=== PATIENT | female | born 1995 | race Caucasian/White ===

== ENCOUNTER 2016-09-08 17:11 | Emergency (ER) | payer BC, OTHER ==
[~2016-09-08] VITALS: Ht 165.1 cm; Wt 79.9 kg
[~2016-09-08 17:11] MED LIST: FERR325T51 PO; SERT50TA PO
[2016-09-08 17:15] VITALS: TEMP 37; Ht 165.1 cm; Wt 79.9 kg
[2016-09-08] MEDS ORDERED: PRED10TA PO (17:36)
[2016-09-08] MEDS ORDERED: AMX500 PO (17:36)
[2016-09-08 18:19] LABS: URINE APPEARANCE CLEAR (CLEAR); URINE BILIRUBIN NEG (NEG); URINE COLOR YELLOW; URINE EPITHELIAL CELL AUTO 20-30 /lpf (0-5); URINE NITRITE NEG (NEG); URINE SPECIFIC GRAVITY 1.027 (1.000-1.030); UROBILINOGEN NEG (NEG); ZZUR CULT IF INDIC CLEAN CATCH NO
[2016-09-08 18:22] LABS: MANUAL MICROSCOPIC REQUIRED? NO; REVIEW REQ? YES; SULFASALICYLIC ACID NEG (NEG)
--- NOTE | 2016-09-08 19:09 | DIAGNOSTIC IMAGING REPORT ---
PELVIC ULTRASOUND CLINICAL HISTORY: Lower abdominal pain. Vaginal discharge. COMPARISON STUDY: Pelvic ultrasound October 06, 2014 and MRI of the pelvis December 02, 2014. TECHNIQUE: Transabdominal and transvaginal sonography of the pelvis was performed. FINDINGS: The uterus measures 10.1 x 4.6 x 4.4 cm. The endometrium measures 1 cm in thickness. A small amount of fluid is noted within the endometrial canal. The right ovary measures 4.2 x 1.9 x 2.4 cm and the left measures 4.5 x 1.9 x 2.6 cm. There was color flow within each ovary. A small amount of fluid was noted within the pelvis. IMPRESSION: 1. Unremarkable sonographic appearance of the ovaries. 2. Endometrial thickness of 1 cm. Small amount of fluid within the endometrial and cervical canal. 3. Small amount of fluid within the pelvis. Electronically signed by: Benjamin Zamorano M.D. 09/08/2016 7:08 PM Dictated Date/Time: 09/08/2016 7:05 PM
[2016-09-08] MEDS ORDERED: ACETAMINOPHEN 500 MG TAB PO STA (19:38)
[2016-09-08] MEDS ORDERED: METRONIDAZOLE 250 MG TAB PO STA (20:16)
--- NOTE | 2016-09-08 20:18 | EMERGENCY ROOM VISIT NOTE ---
History Report prepared by Sue: Terra Roque Under the Supervision of: Dr. Lila Boone D.O. First contact with patient: 17:20 Chief Complaint: PELVIC PAIN Stated Complaint: ABD PAIN, DIARRHEA, FEVER, CHILLS History of Present Illness The patient is a 21 year old female who presents to the Emergency Room with complaints of an episode of pelvic pain starting six days ago. The patient states that she has been having a severe watery vaginal discharge that has no smell. She states that it is so bad that she has to wear a maxi pad or she leaks onto her sheets. She states that she has a crampy period like pain with it , but it feels worse. The patient reports that she was treated for a UTI and a yeast infection two weeks ago. She reports that she was tested two weeks ago for Gonorrhea and Chlamydia that came back negative, but has had two different new sexual partners since then. The patient states that a week ago she took Plan B and she notes that she bled for a day. The patient states that she is on Prednisone and Amoxicillin for a double ear infection and sinus infection that she started yesterday. The patient complains of fever, chills, and being bloated. She denies urinary symptoms, change in bowel movements, diarrhea, new soaps, new detergents, new condoms, and new lubricants. 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 Source of History: patient Onset: six days ago Position: pelvis Symptom Intensity: severe Quality: other (crampy period like) Timing: other (episode) Associated Symptoms: + fevers, + chills, No diarrhea, No urinary symptoms Note: The patient complains of bloating. The patient denies a change in bowel movements, new soaps, new dtergents, new condoms, and new lubricants. Review of Systems Pt denies headache, change in vision, fevers, chest pain, shortness of breath, nausea, vomiting, diarrhea, pain with urination, and melena. Past Medical & Surgical Medical Problems: (1) First trimester (2) Non-reactive NST (non-stress test) (3) Placenta accreta (4) Threatened miscarriage (5) Uterine contractions Family History Cancer Diabetes mellitus Kidney disease Kidney stones Social History Smoking Status: Never Smoker Alcohol Use: none Marital Status: single Housing Status: lives alone Occupation Status: [employer] student Current/Historical Medications Scheduled Amoxicillin (Amoxicillin), 500 MG PO BID Metronidazole (Flagyl), 500 MG PO BID Prednisone Tab (Prednisone), 10 MG PO BID Sertraline (Zoloft), 75 MG PO DAILY Allergies Coded Allergies: No Known Allergies (Unverified , 09/08/16) Physical Exam Vital Signs Date Time Temp Pulse Resp B/P (MAP) Pulse Ox O2 Delivery O2 Flow Rate FiO2 09/08/16 20:34 103 18 113/67 96 09/08/16 19:14 99 16 114/64 99 Room Air 09/08/16 17:15 37.0 101 20 115/77 100 Room Air Physical Exam GENERAL: alert, well appearing, well nourished, no distress, non-toxic EYE EXAM: normal conjunctiva, PERRL and EOM's grossly intact OROPHARYNX: no exudate, no erythema, lips, buccal mucosa, and tongue normal and mucous membranes are moist NECK: supple, no nuchal rigidity, no adenopathy, non-tender LUNGS: Clear to auscultation. Normal chest wall mechanics HEART: no murmurs, S1 normal and S2 normal ABDOMEN: abdomen soft, normo-active bowel sounds, no masses, no rebound or guarding, mild suprapubic discomfort. BACK: Back is symmetrical on inspection and there is no deformity, no midline tenderness, no CVA tenderness. SKIN: no rashes and no bruising UPPER EXTREMITIES: upper extremities are grossly normal. LOWER EXTREMITIES: No pitting edema. NEURO EXAM: Normal sensorium, cranial nerves II-XII [grossly] intact, normal speech, no [gross] weakness of arms, no [gross] weakness of legs. [No drift. Finger to nose intact. Gross sensation intact.] Medical Decision & Procedures ER Provider Diagnostic Interpretation: Radiology results have been interpreted by the radiologist and reviewed by me. PELVIC ULTRASOUND CLINICAL HISTORY: Lower abdominal pain. Vaginal discharge. COMPARISON STUDY: Pelvic ultrasound October 06, 2014 and MRI of the pelvis December 02, 2014. TECHNIQUE: Transabdominal and transvaginal sonography of the pelvis was performed. FINDINGS: The uterus measures 10.1 x 4.6 x 4.4 cm. The endometrium measures 1 cm in thickness. A small amount of fluid is noted within the endometrial canal. The right ovary measures 4.2 x 1.9 x 2.4 cm and the left measures 4.5 x 1.9 x 2.6 cm. There was color flow within each ovary. A small amount of fluid was noted within the pelvis. IMPRESSION: 1. Unremarkable sonographic appearance of the ovaries. 2. Endometrial thickness of 1 cm. Small amount of fluid within the endometrial and cervical canal. 3. Small amount of fluid within the pelvis. Electronically signed by: Benjamin Zamorano M.D. 09/08/2016 7:08 PM Dictated Date/Time: 09/08/2016 7:05 PM Laboratory Results Test 09/08/16 18:00 09/08/16 19:35 Urine Color YELLOW Urine Appearance CLEAR (CLEAR) Urine pH 8.0 (4.5-7.5) Urine Specific [place] 1.027 (1.000-1.030) Urine Protein NEG (NEG) Urine Glucose (UA) NEG (NEG) Urine Ketones TRACE (NEG) Urine Occult Blood NEG (NEG) Urine Nitrite NEG (NEG) Urine Bilirubin NEG (NEG) Urine Urobilinogen NEG (NEG) Urine Leukocyte Esterase TRACE (NEG) Urine WBC (Auto) 1-5 /hpf (0-5) Urine RBC (Auto) 0-4 /hpf (0-4) Urine Hyaline Casts (Auto) 1-5 /lpf (0-5) Urine Epithelial Cells (Auto) 20-30 /lpf (0-5) Urine Bacteria (Auto) NEG (NEG) Urine Test NEG (NEG) Laboratory results per my review. Medications Administered Medications (Trade) Dose Ordered Sig/Lili Route Start Time Stop Time Status Last Admin Dose Admin Acetaminophen (Tylenol Tab) 1,000 mg NOW STAT PO 09/08/16 19:38 09/08/16 19:39 DC 09/08/16 19:44 1,000 MG Metronidazole (Flagyl Tab) 500 mg NOW STAT PO 09/08/16 20:16 09/08/16 20:17 DC 09/08/16 20:30 500 MG Procedure PELVIC EXAM: Normal external genitalia. No blood in vaginal vault. Moderate amount of clear vaginal discharge. No evidence of cervicitis. No CMT or adnexal tenderness. ED Course 1738: The patient was evaluated in room A3. A complete history and physical exam was performed. 1938: Ordered Tylenol Tab 1000 mg PO. 2016: Ordered Flagyl Tab 500 mg PO. 2017: Upon reevaluation, the patient is feeling better. I discussed the findings and the treatment plan with the patient. She verbalizes agreement and understanding. The patient was discharged home. Medical Decision Differential diagnoses include STD, PID, EV, TOA, hormonal abnormality, allergic reaction, vaginitis. Pt well appearing here despite complaints. Abd soft, no f/c. UA negative. GC/ Chlamydia sent, yeast pending but clinically not consistent with yeast infection. Given discharge, possible BV. Started on flagyl. No evidence of PID, TOA. Doubt additional GI pathology. Doubt stone/pyelo. Discussed f/u with gore cutter, discussed sx to watch/return for, she verbalized understanding and was agreeable with plan. Medication Reconcilliation Current Medication List: was personally reviewed by me Blood Pressure Screening Patient's blood pressure: Normal blood pressure Impression Primary Impression: Vaginal discharge Additional Impression: Bacterial vaginosis Scribe Attestation The scribe's documentation has been prepared under my direction and personally reviewed by me in its entirety. I confirm that the note above accurately reflects all work, treatment, procedures, and medical decision making performed by me. Departure Information Dispostion Home / Self-Care Prescriptions Metronidazole (FLAGYL) 500 Mg Tab 500 MG PO BID, #14 TAB Prov: MelyLila Marcus, DO 09/08/16 Referrals No Doctor, Assigned (PCP) Forms HOME CARE DOCUMENTATION FORM, IMPORTANT VISIT INFORMATION, WORK / SCHOOL INSTRUCTIONS Patient Instructions My [facility] Additional Instructions Please follow up with NURSE regarding her discharge. Please take the antibiotics as prescribed. Please avoid sexual intercourse until you are seen and cleared by NURSE. Please drink plenty of water. Do not douche. If you develop any worsening discharge, develop pain, bleeding, fevers or chills, back pain, noticed a change in your urine or bowel movements, or you have any other new concerns, please return the emergency room. Problem Qualifiers
[2016-09-08] MEDS ORDERED: METR500T PO (20:19)
[2016-09-08 20:34] VITALS: BP 113/67; PULSE 103; O2SAT 96
[2016-09-12 03:03] LABS: CHLAMYDIA TRACH RNA*** NOT DETECTED (NOT DETECTED); GC (NEIS GONORRHOEAE)RNA** NOT DETECTED (NOT DETECTED)
== END 2016-09-08 20:36 | disposition home or self-care (01) ==
LOC: C.EDB 17:13 → C.EDA 20:36
DX: N76.0 Acute vaginitis (principal); Z87.59 Personal history of other complications of pregnancy, childbirth and the puerperium; Z83.3 Family history of diabetes mellitus; Z84.1 Family history of disorders of kidney and ureter

== ENCOUNTER 2016-09-10 10:28 | Emergency (ER) | payer BC, OTHER ==
[~2016-09-10] VITALS: Ht 165.1 cm; Wt 79.9 kg
[~2016-09-10 10:28] MED LIST changes: +AMX500 PO; -FERR325T51 PO; +METR500T PO; +PRED10TA PO
[2016-09-10 10:31] VITALS: Ht 165.1 cm; Wt 79.9 kg
[2016-09-10] MEDS ORDERED: CEFTRIAXONE SOD INJ 1 GM ADDVIAL IV STA (11:16)
[2016-09-10] MEDS ORDERED: HYDROmorphone INJ 1 MG/ML SYR IV STA (11:16)
[2016-09-10] MEDS ORDERED: KETOROLAC TROMETHAMINE 30 MG/ML VIAL IV STA (11:16)
[2016-09-10] MEDS ORDERED: SODIUM CHLORIDE 0.9% 1000ML 1,000 ML IV STA (11:16)
[2016-09-10] MEDS ORDERED: METOCLOPRAMIDE HCL INJ 5 MG/ML 2 ML VIAL IV STA (11:16)
[2016-09-10] MEDS ORDERED: AZITHROMYCIN 250 MG TAB PO ONE (11:30)
[2016-09-10] MEDS ORDERED: OPTIRAY 320 IV PRN (11:30)
[2016-09-10] MEDS ORDERED: DOXYCYCLINE HYCLATE 100 MG CAP PO ONE (11:30)
[2016-09-10 11:33] LABS: HEMATOCRIT 40.7 % (37-47); MEAN CELL VOLUME 84.6 fL (80-100); MEAN CORPUSCULAR HEMOGLOBIN 28.3 pg (25-34); MEAN CORPUSCULAR HGB CONC 33.4 g/dl (32-36); MEAN PLATELET VOLUME 8.7 fL (7.4-10.4); PLATELET COUNT 184 K/uL (130-400); RED BLOOD COUNT 4.81 M/uL (4.2-5.4); WHITE BLOOD COUNT 6.23 K/uL (4.8-10.8)
[2016-09-10 11:50] LABS: ALT/SGPT 33 U/L (12-78); AST/SGOT 22 U/L (15-37); BLOOD UREA NITROGEN 9 mg/dl (7-18); BUN/CREATININE RATIO 10.4 (10-20); CALCIUM 9.3 mg/dl (8.5-10.1); CARBON DIOXIDE 30 mmol/L (21-32); CHLORIDE 102 mmol/L (98-107); CREATININE 0.87 mg/dl (0.60-1.20); GLUCOSE 76 mg/dl (70-99); SODIUM 137 mmol/L (136-145)
[2016-09-10 11:51] LABS: URINE APPEARANCE CLEAR (CLEAR); URINE BILIRUBIN NEG (NEG); URINE COLOR DK YELLOW; URINE EPITHELIAL CELL AUTO >30 /lpf (0-5); URINE NITRITE NEG (NEG); URINE PH 6.5 (4.5-7.5); URINE SPECIFIC GRAVITY 1.026 (1.000-1.030); UROBILINOGEN NEG (NEG)
[2016-09-10 11:53] LABS: ALKALINE PHOSPHATASE 51 U/L (45-117)
[2016-09-10 11:53] LABS: MANUAL MICROSCOPIC REQUIRED? NO; REVIEW REQ? NO
--- NOTE | 2016-09-10 11:53 | EMERGENCY ROOM VISIT NOTE ---
History Report prepared by Sue: Joanie Carlos Under the Supervision of: Dr. Rajiv Callaway M.D. First contact with patient: 11:07 Chief Complaint: PELVIC PAIN Stated Complaint: PELVIC PAIN,FEVER,DISCHARGE History of Present Illness The patient is a 21 year old female who presents to the Emergency Room with complaints of worsening pelvic pain for the past week. She has had abnormal vaginal discharge. The patient was evaluated in the ED two days ago for these symptoms and diagnosed with bacterial vaginosis. She was discharged on Flagyl and with instructions to follow-up with her ob-violin restorer. The patient states that she was unable to be seen by her ob-violin restorer until November, and she is still experiencing the same symptoms. Now she is also having diarrhea and abdominal bloating. She has been taking Tylenol for pain. The patient rates her current pain as a 2/10 in severity. She is currently taking Amoxicillin and prednisone for a sinus infection and bilateral ear infection. Source of History: patient Onset: 1 week ago Position: pelvis Symptom Intensity: 2/10 Quality: other (bloating) Timing: worsening Associated Symptoms: + diarrhea Note: Pt has abnormal vaginal discharge. Review of Systems See HPI for pertinent positives & negatives. A total of 10 systems reviewed and were otherwise negative. Past Medical & Surgical Medical Problems: (1) First trimester (2) Non-reactive NST (non-stress test) (3) Placenta accreta (4) Threatened miscarriage (5) Uterine contractions Family History Cancer Diabetes mellitus Kidney disease Kidney stones Social History Smoking Status: Never Smoker Alcohol Use: none Marital Status: single Housing Status: lives alone Occupation Status: [employer] student Current/Historical Medications Scheduled Amoxicillin (Amoxicillin), 500 MG PO BID Doxycycline Monohydrate (Monodox), 100 MG PO BID Metronidazole (Flagyl), 500 MG PO BID Prednisone Tab (Prednisone), 10 MG PO BID Sertraline (Zoloft), 75 MG PO DAILY Allergies Coded Allergies: No Known Allergies (Unverified , 09/08/16) Physical Exam Vital Signs Date Time Temp Pulse Resp B/P (MAP) Pulse Ox O2 Delivery O2 Flow Rate FiO2 09/10/16 14:23 37.5 100 18 109/71 96 09/10/16 12:13 88 18 91/46 96 Room Air 09/10/16 12:05 90 09/10/16 10:31 37.6 102 18 114/77 97 Room Air Physical Exam GENERAL: Patient is a healthy-appearing well-nourished 21 year old female HEAD: Normocephalic atraumatic EYES: Ocular movements intact pupils equal and react to light OROPHARYNX mucous membranes are moist no exudates present no erythema or edema present NECK: Supple no nuchal rigidity CHEST: Good equal expansion LUNGS: Clear and equal to auscultation CARDIAC: Normal S1 and S2 ABDOMEN: Soft nontender no guarding BACK: No CVA tenderness EXTREMITIES: No pain upon palpation normal muscle strength in all groups no clubbing cyanosis or edema NEURO: Patient is following commands and answering questions appropriately. Alert and oriented x3 Cranial Nerves 2-12 grossly intact Medical Decision & Procedures ER Provider Diagnostic Interpretation: Radiology results as stated below per my review and radiologist interpretation: ABD/PELVIS IV CONTRAST ONLY HISTORY: 21 years-old Female Pt c/o diarrhea, LLQ abd pain and fever COMPARISON: Pelvic ultrasound 09/08/2016, pelvic MR 12/02/2014 TECHNIQUE: Multiple axial CT images of the abdomen and pelvis were obtained following the intravenous administration of 93 mL Optiray 320. A dose lowering technique was used consistent with the principals of WENDI. FINDINGS: There is minimal dependent bibasilar atelectasis. There is no pneumoperitoneum identified. Image inferior cardiac chambers are unremarkable. The liver, spleen, gallbladder, pancreas and adrenal glands appear normal. The bilateral kidneys and ureters are also within normal limits. Urinary bladder is mostly collapsed. There is a moderate amount of free fluid within the pelvis with fluid also present within the endocervical canal. There is increased enhancement of the endometrium with prominence of the uterine vessels. Peripheral enhancing cystic structure of the left adnexum, 2.0 x 1.8 cm suggesting bleeding follicle. The abdominal aorta is normal both course and caliber. There are a few scattered prominent nonenlarged retroperitoneal and iliac lymph nodes with index pericaval lymph node measuring up to 1.5 x 0.8 cm on image 201 of the axial series. These are likely reactive. There is no bowel obstruction. There are several loops of small bowel which demonstrate air-fluid levels without dilation. The rectosigmoid is fluid-filled. Fluid is also seen throughout several other loops of colon. The appendix appears noninflamed within the abdominal right lower quadrant, however is also fluid-filled likely extension of the colonic findings as described. Mild stranding is seen within the lower pelvis. Soft tissues are unremarkable. The bones appear intact. IMPRESSION: 1. Nondilated fluid-filled loops of both small and large bowel are noted suggesting enteritis with diarrheal state. 2. Moderate amount of fluid within the endocervical canal with endometrial enhancement and moderate amount of free pelvic fluid are nonspecific findings. No evidence of drainable abscess. Correlate clinically to exclude pelvic inflammatory disease. 3. Peripherally enhancing cystic structure of the left adnexum, 2.0 cm suggests including follicle. 4. Mildly prominent periaortic, pericaval and iliac chain lymph nodes are likely reactive. The above report was generated using voice recognition software. It may contain grammatical, syntax or spelling errors. Electronically signed by: Yuan Chambers M.D. 09/10/2016 12:58 PM Dictated Date/Time: 09/10/2016 12:50 PM Laboratory Results 09/10/16 11:20 Red Blood Count 4.81, Mean Corpuscular Volume 84.6, Mean Corpuscular Hemoglobin 28.3, Mean Corpuscular Hemoglobin Concent 33.4, Mean Platelet Volume 8.7, Neutrophils (%) (Auto) 66.8, Lymphocytes (%) (Auto) 22.6, Monocytes (%) (Auto) 9.3, Eosinophils (%) (Auto) 0.2, Basophils (%) (Auto) 0.8, Neutrophils # (Auto) 4.16, Lymphocytes # (Auto) 1.41, Monocytes # (Auto) 0.58, Eosinophils # (Auto) 0.01, Basophils # (Auto) 0.05 09/10/16 11:20 Test 09/10/16 11:10 09/10/16 11:20 Urine Color [place] YELLOW Urine Appearance CLEAR (CLEAR) Urine pH 6.5 (4.5-7.5) Urine Specific [place] 1.026 (1.000-1.030) Urine Protein 2+ (NEG) Urine Glucose (UA) NEG (NEG) Urine Ketones TRACE (NEG) Urine Occult Blood NEG (NEG) Urine Nitrite NEG (NEG) Urine Bilirubin NEG (NEG) Urine Urobilinogen NEG (NEG) Urine Leukocyte Esterase SMALL (NEG) Urine WBC (Auto) 5-10 /hpf (0-5) Urine RBC (Auto) 5-10 /hpf (0-4) Urine Hyaline Casts (Auto) 1-5 /lpf (0-5) Urine Epithelial Cells (Auto) >30 /lpf (0-5) Urine Bacteria (Auto) NEG (NEG) White Blood Count 6.23 K/uL (4.8-10.8) Red Blood Count 4.81 M/uL (4.2-5.4) Hemoglobin 13.6 g/dL (12.0-16.0) Hematocrit 40.7 % (37-47) Mean Corpuscular Volume 84.6 fL (80-100) Mean Corpuscular Hemoglobin 28.3 pg (25-34) Mean Corpuscular Hemoglobin Concent 33.4 g/dl (32-36) Platelet Count 184 K/uL (130-400) Mean Platelet Volume 8.7 fL (7.4-10.4) Neutrophils (%) (Auto) 66.8 % Lymphocytes (%) (Auto) 22.6 % Monocytes (%) (Auto) 9.3 % Eosinophils (%) (Auto) 0.2 % Basophils (%) (Auto) 0.8 % Neutrophils # (Auto) 4.16 K/uL (1.4-6.5) Lymphocytes # (Auto) 1.41 K/uL (1.2-3.4) Monocytes # (Auto) 0.58 K/uL (0.11-0.59) Eosinophils # (Auto) 0.01 K/uL (0-0.5) Basophils # (Auto) 0.05 K/uL (0-0.2) RDW Standard Deviation 40.7 fL (36.4-46.3) RDW Coefficient of Variation 13.1 % (11.5-14.5) Immature Granulocyte % (Auto) 0.3 % Immature Granulocyte # (Auto) 0.02 K/uL (0.00-0.02) Anion Gap 5.0 mmol/L (3-11) Est Creatinine Clear Calc Drug Dose 105.9 ml/min Estimated GFR () 109.6 Estimated GFR (Non- 94.6 BUN/Creatinine Ratio 10.4 (10-20) Calcium Level 9.3 mg/dl (8.5-10.1) Total Bilirubin 0.2 mg/dl (0.2-1) Direct Bilirubin < 0.1 mg/dl (0-0.2) Aspartate Amino Transf (AST/SGOT) 22 U/L (15-37) Alanine Aminotransferase (ALT/SGPT) 33 U/L (12-78) Alkaline Phosphatase 51 U/L (45-117) Total Protein 7.0 gm/dl (6.4-8.2) Albumin 3.1 gm/dl (3.4-5.0) Lipase 171 U/L (73-393) Human Chorionic Gonadotropin, Qual NEG (NEG) Date/Time Source Procedure Growth Status 09/10/16 13:20 Stool C.difficile Toxin B Gene (PCR) - Final No C. difficile toxin B gene detected Complete Labs reviewed by ED physician. Medications Administered Medications (Trade) Dose Ordered Sig/Lili Route Start Time Stop Time Status Last Admin Dose Admin Ceftriaxone Sodium (Rocephin Inj) 1 gm NOW STAT IV 09/10/16 11:16 09/10/16 11:20 DC 09/10/16 11:38 1 GM Azithromycin (Zithromax Tab) 1,000 mg NOW ONCE PO 09/10/16 11:30 09/10/16 11:31 DC 09/10/16 11:38 1,000 MG Sodium Chloride 1,000 ml @ 999 mls/hr Q1H1M STAT IV 09/10/16 11:16 09/10/16 12:16 DC 09/10/16 11:31 999 MLS/HR Doxycycline Hyclate (Vibramycin Cap) 100 mg ONE ONCE PO 09/10/16 11:30 09/10/16 11:31 DC 09/10/16 11:38 100 MG Metoclopramide HCl (Reglan Inj) 10 mg NOW STAT IV 09/10/16 11:16 09/10/16 11:20 DC 09/10/16 11:38 10 MG ED Course 1107: Past medical records reviewed. The patient was evaluated in room C9. A complete history and physical examination was performed. 1116: Reglan 10 mg IV, Dilaudid 1 mg IV (pt refused), Toradol 30 mg IV (pt refused), NSS 1000 ml @ 999 mls/hr IV, Rocephin 1 gm IV 1130: Vibramycin 100 mg PO, Azithromycin 1000 mg PO 1328: I updated the patient on her results. 1418: I reassessed the patient at this time. She is feeling better and resting comfortably. I discussed the results and treatment plan with the patient. I answered all pertaining questions that she had. She expressed understanding and verbalized agreement. The patient will be discharged home. 1508: I discussed the patient's case with Dr. Kirby of [facility] ob-violin restorer. She will follow-up with the patient in the office. Medical Decision Etiologies such as appendicitis, diverticulitis, PUD, biliary pathology, UTI, pancreatitis, obstruction, mesenteric ischemia, aortic pathology, infections, inflammatory bowel disease, renal colic, as well as others were entertained. This is a 21-year-old female that presents emergency department complaining of a large amount of fluid leaking from her vaginal vault. I will note that the patient recently had a pelvic exam performed here in emergency department and I do believe based on these findings at the patient most likely has PID. She was started on Rocephin as well as azithromycin in the emergency department. I also started the patient on doxycycline. I also recommended that the patient continue her Flagyl. Her GC and chlamydia tests are still not returned. Repeat examination revealed much improvement the patient's symptoms. The patient at this point wished to be discharged home however stressed the need for follow-up with gynecology. Patient was in agreement with the treatment plan. Medication Reconcilliation Current Medication List: was personally reviewed by me Blood Pressure Screening Patient's blood pressure: Normal blood pressure Consults Time Called: 1300 Consulting Physician: Dr. Kirby Returned Call: 1509 I discussed the patient's case with Dr. Kirby of [facility] ob-violin restorer. She will follow-up with the patient in the office. Impression Primary Impression: PID (acute pelvic inflammatory disease) Scribe Attestation The scribe's documentation has been prepared under my direction and personally reviewed by me in its entirety. I confirm that the note above accurately reflects all work, treatment, procedures, and medical decision making performed by me. Departure Information Dispostion Home / Self-Care Prescriptions Doxycycline Monohydrate (Monodox) 100 Mg Cap 100 MG PO BID, #14 CAP Prov: Rajiv Callaway MD 09/10/16 Referrals Rossi Rangel PA-C (PCP) Ajit Melvin M.D. Forms HOME CARE DOCUMENTATION FORM, IMPORTANT VISIT INFORMATION, WORK / SCHOOL INSTRUCTIONS Patient Instructions My [facility], PID Tx Meds Additional Instructions STOP taking Amoxicillin, STOP taking Prednisone START taking Doxycycline CONTINUE taking FLAGYL TAKE Probiotics to avoid diarrhea Culture results are usually available in approx 48 hours You have been examined and treated today on an emergency basis only. This is not a substitute for, or an effort to provide, complete comprehensive medical care. It is impossible to recognize and treat all injuries or illnesses in a single emergency department visit. It is therefore important that you follow up closely with your PCP. Call as soon as possible for an appointment. Thank you for your time and consideration. I look forward to speaking with you again soon. Please don't hesitate to call us if you have any questions.
[2016-09-10 11:55] LABS: PREG INTERNAL NEGATIVE QC NEG CLEAR BACKGROUND; PREG INTERNAL POSITIVE QC POS CONTROL LINE
[2016-09-10 12:06] LABS: BASO % 0.8 %; BASO ABS # 0.05 K/uL (0-0.2); COMPLETE YES; EOS % 0.2 %; IG% 0.3 %; LYMPH % 22.6 %; LYMPH ABS # 1.41 K/uL (1.2-3.4); MONO % 9.3 %; NEUT % 66.8 %
--- NOTE | 2016-09-10 12:59 | DIAGNOSTIC IMAGING REPORT ---
ABD/PELVIS IV CONTRAST ONLY HISTORY: 21 years-old Female Pt c/o diarrhea, LLQ abd pain and fever COMPARISON: Pelvic ultrasound 09/08/2016, pelvic MR 12/02/2014 TECHNIQUE: Multiple axial CT images of the abdomen and pelvis were obtained following the intravenous administration of 93 mL Optiray 320. A dose lowering technique was used consistent with the principals of WENDI. FINDINGS: There is minimal dependent bibasilar atelectasis. There is no pneumoperitoneum identified. Image inferior cardiac chambers are unremarkable. The liver, spleen, gallbladder, pancreas and adrenal glands appear normal. The bilateral kidneys and ureters are also within normal limits. Urinary bladder is mostly collapsed. There is a moderate amount of free fluid within the pelvis with fluid also present within the endocervical canal. There is increased enhancement of the endometrium with prominence of the uterine vessels. Peripheral enhancing cystic structure of the left adnexum, 2.0 x 1.8 cm suggesting bleeding follicle. The abdominal aorta is normal both course and caliber. There are a few scattered prominent nonenlarged retroperitoneal and iliac lymph nodes with index pericaval lymph node measuring up to 1.5 x 0.8 cm on image 201 of the axial series. These are likely reactive. There is no bowel obstruction. There are several loops of small bowel which demonstrate air-fluid levels without dilation. The rectosigmoid is fluid-filled. Fluid is also seen throughout several other loops of colon. The appendix appears noninflamed within the abdominal right lower quadrant, however is also fluid-filled likely extension of the colonic findings as described. Mild stranding is seen within the lower pelvis. Soft tissues are unremarkable. The bones appear intact. IMPRESSION: 1. Nondilated fluid-filled loops of both small and large bowel are noted suggesting enteritis with diarrheal state. 2. Moderate amount of fluid within the endocervical canal with endometrial enhancement and moderate amount of free pelvic fluid are nonspecific findings. No evidence of drainable abscess. Correlate clinically to exclude pelvic inflammatory disease. 3. Peripherally enhancing cystic structure of the left adnexum, 2.0 cm suggests including follicle. 4. Mildly prominent periaortic, pericaval and iliac chain lymph nodes are likely reactive. The above report was generated using voice recognition software. It may contain grammatical, syntax or spelling errors. Electronically signed by: Yuan Chambers M.D. 09/10/2016 12:58 PM Dictated Date/Time: 09/10/2016 12:50 PM
[2016-09-10] MEDS ORDERED: DOXY100C76 PO (13:29)
[2016-09-10 14:23] VITALS: BP 109/71; PULSE 100; TEMP 37.5; O2SAT 96
== END 2016-09-10 14:20 | disposition home or self-care (01) ==
LOC: C.EDB 10:30 → C.EDC 14:20
DX: N73.9 Female pelvic inflammatory disease, unspecified (principal); Z79.899 Other long term (current) drug therapy; Z80.9 Family history of malignant neoplasm, unspecified; Z83.3 Family history of diabetes mellitus; Z84.1 Family history of disorders of kidney and ureter

== ENCOUNTER 2016-11-27 20:20 | Emergency (ER) | payer BC, OTHER ==
[~2016-11-27] VITALS: Ht 165.1 cm; Wt 80.9 kg
[~2016-11-27 20:20] MED LIST changes: +DOXY100C76 PO; -METR500T PO
[2016-11-27 20:30] VITALS: TEMP 36.8; Ht 165.1 cm; Wt 80.9 kg
[2016-11-27 21:22] VITALS: BP 124/76; PULSE 76; O2SAT 98
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
== END 2016-11-27 21:45 | disposition home or self-care (01) ==
LOC: C.EDB 20:22 → C.EDC 21:45
DX: R51 Headache (principal); H57.12 Ocular pain, left eye; H57.9 Unspecified disorder of eye and adnexa; E21.3 Hyperparathyroidism, unspecified

== ENCOUNTER → 2017-07-01 | Outpatient (CLI) | payer BC, OTHER ==
[~2017-07-01] MED LIST changes: -AMX500 PO; -DOXY100C76 PO; -PRED10TA PO
== END | disposition home or self-care (01) ==
LOC: C.LAB1850 13:25
PROVIDERS: ATTEND Obstetrics & Gynecology
DX: N91.2 Amenorrhea, unspecified (principal)

== ENCOUNTER → 2017-07-01 | Outpatient (CLI) | payer BC, OTHER | END | disposition home or self-care (01) | LOC: C.LABSPEC 17:43 | PROVIDERS: ATTEND Obstetrics & Gynecology | DX: N90.89 Other specified noninflammatory disorders of vulva and perineum (principal) ==